=== PATIENT | female | born 1995 | race Caucasian/White ===

== ENCOUNTER 2018-03-21 16:13 | Outpatient (REF) | payer BC, SELFPAY ==
--- NOTE | 2018-03-21 16:00 | PAPFT_PTH ---
PATIENT: Angel Martin LOC: [facility] U#:[id number] AGE/SX: 22/F ROOM: RE03/21/[address]: CLARK Sharp : 1995 BED: DIS: 03/21/2018 SPEC #: [id number] RECD: 03/21/18 18:08 STATUS: ESTELLE REKo #: [id number] HELENA: 03/21/18 16:[address]: Meseret Jackson DEPT: [facility] Cytology RECD BY: Nelda Zaman Tissues: 1 - CX/ENDOCX FOR PAP SMEARS Procedures: PAP THIN PREP/UVM Screening HPV DNA PROBE Comments: [id number]
== END 2018-03-21 16:33 ==
LOC: LBN 16:13
PROVIDERS: Visit Provider Nurse Practitioner Family
DX: Z12.4 Encounter for screening for malignant neoplasm of cervix (principal)
CPT/HCPCS: 88142; 87624

== ENCOUNTER 2018-05-13 16:31 | Outpatient (REF) | payer BC, SELFPAY | END 2018-05-13 16:51 | LOC: LBN 16:31 | PROVIDERS: Visit Provider Nurse Practitioner Family | DX: R30.0 Dysuria (principal) | CPT/HCPCS: 87077; 87086; 87186 ==

== ENCOUNTER 2018-09-27 15:22 | Outpatient (REF) | payer BC, SELFPAY ==
[2018-09-30 14:52] LABS: Chlamydia Result Negative; GC Result Negative; Specimen Description URINE
== END 2018-09-27 15:42 ==
LOC: LBN 15:22
PROVIDERS: Visit Provider Nurse Practitioner Family
DX: Z11.3 Encounter for screening for infections with a predominantly sexual mode of transmission (principal)
CPT/HCPCS: 87491; 87591

== ENCOUNTER 2019-01-15 09:40 | Emergency (ER) | payer BC, SELFPAY ==
[2019-01-15 09:45] VITALS: BP 117/77; PULSE 73; RESP 20; TEMP 37.1; O2SAT 96
--- NOTE | 2019-01-15 10:00 | W.ED.GENAD ---
Discharge Plan Disposition Patient Disposition: HOME Condition: Stable Discharge Details Chief Complaint: Sorethroat Clinical Impression: Acute streptococcal pharyngitis Primary Care Provider: None,None ED Provider: Symone Zavaleta Home Meds and New Rx's Prescriptions: Continued Mirena 20 mcg/24 hours (5 yrs) 52 mg intrauterine device 1 device IY ONCE RF: 0 Discharge Instructions Instructions: Pharyngitis (ED) Additional Instructions: Alternate Tylenol and Motrin as needed and directed for pain or fever. Continue to drink plenty of fluids and get plenty of rest. Follow-up with your primary care doctor next week for reevaluation as needed. Return immediately to the emergency department with any worsening or new concerning symptoms of increased pain or difficulty swallowing. Stand Alone Forms: Work Release Discharge Data Discharge Date/Time-TO BE ENTERED AT DEPARTURE: 01/15/19 10:00 Discharge Physician: Symone Zavaleta Medical Decision Making 23-year-old female with fever, sore throat, headache, ear pain for the past 2 days. Vitals within normal limits. She appears nontoxic but uncomfortable. She is speaking in full sentences. No trismus, drooling, submandibular swelling. Posterior oropharynx is erythematous with exudates but uvula midline and no evidence of peritonsillar abscess. Rapid strep positive. Patient offered Bicillin injection or oral antibiotics and she would like injection. She tolerated injection well. She is advised to alternate Tylenol and Motrin, continue to push fluids, rest, follow-up with the primary care doctor and return here with any concerns. HPI General Mode of arrival: ambulatory. Date/Time Provider Initiated Documentation: 01/15/19 09:41. Limitations to Documentation: no limitations. Information obtained by: patient. History of Present Illness described as moderate, Quality is described as sharp and constant, and is localized to the mouth (sore throat). Patient reports no radiation. Patient started experiencing this day(s) (2) and it has been constant. Medication improves symptom(s), (advil, tylenol) Other factors that worsen symptoms (swallowing) . Patient notes headaches; denies chest pain, cough, nausea/vomiting, rash, seizure, shortness of breath, syncope and weakness. Patient did receive the following treatments prior to arrival, other (tylenol) Related Data Home Medications Medication Instructions Recorded Confirmed levonorgestrel 20 mcg/24 hours (5 1 device IY ONCE 10/22/18 01/15/19 yrs) 52 mg intrauterine device Allergies Allergy/AdvReac Type Severity Reaction Status Date / Time No Known Allergies Allergy Verified 01/15/19 09:47 General Stated Complaint: Sorethroat SCOTT: 4 Review of Systems All systems reviewed & are unremarkable except as noted in HPI and below Constitutional Constitutional: Reports as per HPI, Denies chills and Denies fever(s) Eyes Eyes: Denies blurry vision ENT Ears, Nose, Mouth, and Throat: Denies dizziness, Reports sore throat and Denies throat swelling Cardiovascular Cardiovascular: Denies chest pain and Denies dyspnea Respiratory Respiratory: Denies cough and Denies dyspnea Gastrointestinal Gastrointestinal: Denies abdominal pain, Denies diarrhea and Denies vomiting Genitourinary Genitourinary: Denies hematuria and Denies dysuria Musculoskeletal Musculoskeletal: Denies back pain and Denies numbness Integumentary/Breasts Skin/Breast: Denies lesions and Denies rash Neurologic Neurologic: Denies dizziness, Denies focal weakness and Denies numbness Allergic/Immunologic Allergic/Immunologic: Denies throat swelling [facility] Medical History Contraception (Acute) Surgical History History of oral surgery (Acute) Family History Father Healthy adult Mother Healthy adult Paternal Grandmother Breast cancer Social History Smoking/Tobacco Use Status: Never Alcohol Intake: former Substance use type: does not use Do you feel safe at home: Yes Do you feel safe in your relationship?: Yes Female Reproductive History Menstrual control method: pills and progestin IUCD (Mirena IUD inserted 10/22/18) History History 0 Para Hx # Term Pregnancies Multiple births Hx # Pregnancies Ectopic pregnancies AB induced Hx Number of Living Children AB spontaneous Exam Const General: cooperative and healthy appearing Orientation: alert and awake HENMT Head: normal to inspection Ears: hearing grossly normal bilaterally, external ears normal and TM's normal bilaterally General nose exam: external nose normal Face and sinus: normal facial exam Mouth: oral mucosae normal Teeth and gingiva: dentition normal Throat: uvula midline, no peritonsillar masses, posterior oropharynx abnormal cobblestoning, edema, erythema and exudates and uvular edema (mild) Eyes General: appearance normal, both eyes and all related structures Eyelids: eyelids normal Pupils: PERRL EOM: EOM intact bilaterally Neck Neck: normal visual inspection and lymphadenopathy (mild anterior cervical tender) Chest Chest: normal inspection of the chest Resp Effort & Inspection: normal respiratory effort and able to speak in complete sentences Auscultation: clear to auscultation bilaterally Cardio Rate: regular rate Rhythm: regular rhythm GI Inspection: normal to inspection Palpation: soft, not firm, no guarding, no hepatosplenomegaly, no masses and nontender Auscultation: normal bowel sounds Skin General skin exam: no rashes or lesions noted Neuro General: alert and awake Cognition: normal cognition Speech: speech normal Gait: normal gait Motor: muscle tone normal throughout Sensory Exam: no sensory deficits noted Extrem General: normal to inspection, full ROM and normal capillary refill Psych Appearance: grossly normal Mental Status: mental status grossly normal Speech and Movement: speech and movement normal Affect: normal affect Thought Process: normal Course Vital Signs Vital signs: Vital Signs Temperature 98.8 F 01/15/19 09:45 Pulse 73 01/15/19 09:45 Respiratory Rate 20 01/15/19 09:45 Blood Pressure 117/77 01/15/19 09:45 Pulse Oximetry 96 01/15/19 09:45 Temperature 98.8 F 01/15/19 09:45 Temperature Source Temporal Artery Scan 01/15/19 09:45 Pulse 73 01/15/19 09:45 Respiratory Rate 20 01/15/19 09:45 Respiratory Effort Non-Labored 01/15/19 09:48 Blood Pressure 117/77 01/15/19 09:45 Blood Pressure Position Sitting 01/15/19 09:45 Pulse Oximetry 96 01/15/19 09:45 Oxygen Delivery Method Room Air 01/15/19 09:45 Oxygen Flow Rate 0 01/15/19 09:45 Pain Level 7 01/15/19 09:45 Lab/Test Results Lab/Test Results: POC Strep Test-HAJA(Rapid) Start: 01/15/19 09:58 Freq: Status: Active Protocol: Document 01/15/19 09:58 CL (Rec: 01/15/19 09:58 CL [email or web address]) Strep test-HAJA(Rapid)-POC POC-Strep test-HAJA (Rapid) Positive POC-Strep test-HAJA (Rapid) Positive
[2019-01-15 10:07] VITALS: BP 117/77; PULSE 73; RESP 20; TEMP 37.1; O2SAT 96
== END 2019-01-15 10:00 | disposition home or self-care (01) ==
LOC: ER 10:25
PROVIDERS: Emergency Provider Physician Assistant
DX: J02.0 Streptococcal pharyngitis (principal)
CPT/HCPCS: 96372; 99284; J0561

== ENCOUNTER 2019-03-24 16:24 | Outpatient (REF) | payer BC, SELFPAY | END 2019-03-24 16:44 | LOC: LBN 16:24 | PROVIDERS: Visit Provider Nurse Practitioner Family | DX: R30.0 Dysuria (principal) | CPT/HCPCS: 87086 ==

== ENCOUNTER 2023-06-20 12:31 | Outpatient (REF) | payer BC, SELFPAY ==
--- NOTE | 2023-06-20 10:50 | PAPFT_PTH ---
PATIENT: Angel Martin LOC: [facility] U#:[id number] AGE/SX: 28/F ROOM: RE06/20/[address]: Genny Anna MD : 1995 BED: DIS: 06/20/2023 SPEC #: [id number] RECD: 06/20/23 12:57 STATUS: ESTELLE REKo #: [id number] HELENA: 06/20/23 10:[address]: Genny Anna DEPT: [facility] Cytology RECD BY: Nelda Zaman ENTERED: 06/20/23 12:57 SP TYPE: PAPFT OTHR DR: Andrews Houser DO Tissues: 1 - CX/ENDOCX FOR PAP SMEARS Procedures: PAP THIN PREP/UVM Screening HPV DNA PROBE Comments: [id number]
== END 2023-06-20 12:32 | disposition home or self-care (01) ==
LOC: LBN 12:31
PROVIDERS: PCP Family Medicine; Visit Provider Obstetrics & Gynecology
DX: Z12.31 Encounter for screening mammogram for malignant neoplasm of breast (principal)
CPT/HCPCS: 88142; 87624